=== PATIENT | male | born 1985 | race Caucasian/White ===

== ENCOUNTER 2016-09-12 19:40 | Emergency (ER) | payer SELFPAY ==
[~2016-09-12] VITALS: Ht 177.8 cm; Wt 72.6 kg
[~2016-09-12 19:40] MED LIST: AMOX500C2 PO; PRD20T PO
[2016-09-12] MEDS ORDERED: CEPH-506 PO (20:07)
[2016-09-12] MEDS ORDERED: PRD20T PO (20:07)
--- NOTE | 2016-09-12 20:07 | ED Integumentary General ---
General Chief Complaint: Skin/Wound Problems Stated Complaint: INFECTED POISON YVROSE ON BOTH LEGS Nursing Triage Note: c/o poison yvrose to extremities Source: patient, family Exam Limitations: no limitations History of Present Illness Time seen by provider: 20:01 Initial Comments Patient reports 3-4 days progressively worsening red rash on his right lower leg that is open is very itchy and was after he was out at [facility]. He' s never had poison yvrose this bad before. He is not having any problems breathing shortness of breath nausea or vomiting. Allergies and Home Medications Allergies Coded Allergies: No Known Drug Allergies (Unverified , 04/14/12) Home Medications Amoxicillin 500 Mg Capsule, 2 EACH PO TID for 10 Days Prescribed by: SUSAN CASTELLANO on 04/14/12 1343 Cephalexin 250 Mg Capsule, 250 MG PO TID for 7 Days, #21 Ref 0 Prescribed by: BARTOLO ISLAS on 09/12/16 2007 Prednisone 20 Mg Tab, 40 MG PO DAILY, #8 Prescribed by: ANTWAN ESPINOZA on 03/24/15 1533 Prednisone 20 Mg Tab, 60 MG PO DAILY for 7 Days, #21 Ref 0 Prescribed by: BARTOLO ISLAS on 09/12/162006 Constitutional: see HPI, No chills, No diaphoresis Gastrointestinal: No diarrhea, No nausea Genitourinary: No discharge, No dysuria Musculoskeletal: No joint pain, No joint swelling Skin: see HPI, pruritus, rash Past Ofbefnj-Yhfhvw-Zmfwhw Hx Patient Social History Alcohol Use: Occasionally Uses Recreational Drug Use: No Smoking Status: Current Everyday Smoker Type Used: Cigarettes Recent Foreign Travel: No Contact w/Someone Who Travel: No Recent Infectious Disease Expo: No Recent Hopitalizations: No Surgeries HX Surgeries: No Respiratory Hx Respiratory Disorders: No Cardiovascular Hx Cardiac Disorders: No Neurological Hx Neurological Disorders: No Genitourinary Hx Genitourinary Disorders: No Gastrointestinal Hx Gastrointestinal Disorders: No Musculoskeletal Hx Musculoskeletal Disorders: No Endocrine Hx Endocrine Disorders: No HEENT HX ENT Disorders: No Cancer Hx Cancer: No Psychosocial Hx Psychiatric Problems: No Integumentary HX Skin/Integumentary Disorder: No Family Medical History Significant Family History: Heart Disease Physical Exam Vital Signs Vital Sign - Last 12Hours 09/12/16 19:50 Temp 98.2 Pulse 100 Resp 18 B/P (MAP) 115/77 Pulse Ox 96 Capillary Refill : Less Than 3 Seconds General Appearance: WD/WN, no apparent distress Cardiovascular: regular rate, rhythm, no edema Respiratory: lungs clear, normal breath sounds Gastrointestinal: non tender, soft Extremities: normal capillary refill, calf tenderness, inflammation Neurologic/Psychiatric: alert, oriented x 3 Skin: rash (erythematous and pruritic with an open area on the jones 1-1/2 by one centimeters and mild weeping the erythema extends from 6 inches above the ankle always superior to just over the knee) Progress/Results/Core Measures Results/Orders Vital Signs/I&O Vital Sign - Last 12Hours 09/12/16 09/12/16 19:50 20:13 Temp 98.2 98.2 Pulse 100 100 Resp 18 18 B/P (MAP) 115/77 Pulse Ox 96 96 Blood Pressure Mean: 90 Departure Impression Impression: Primary Impression: Contact dermatitis due to poison yvrose Disposition: 01 HOME, SELF-CARE Condition: Stable Departure-Patient Inst. Decision time for Depature: 20:02 Referrals: [facility] (PCP/Family) Primary Care Physician Patient Instructions: Cellulitis (Skin Infection), Adult (DC) Add. Discharge Instructions: You will be put on prednisone take 60 mg(3 tablets) daily by mouth with some food. This will start working in 12-24 hours to help with the swelling and itching on her leg. He should also use something like Claritin or Zyrtec daily to help with the itching. You can put calamine ointment on the wound but not on any of the open areas. Just put a small amount of Vaseline over the open areas to keep them clean while you are at work. Bathe with a gentle soap and water just allowed to run over the wounds. You may also have cellulitis so we'll cover you for a week with some Keflex to be taken 3 times a day with food. This is an antibiotic and, side effects are loose stools. The steroid may make you flush in the face, hard to get to sleep, or feeling of being wired. If you cannot tolerate the symptoms you can reduce the dose by 1 pill a day. All discharge instructions reviewed with patient and/or family. Voiced understanding. Scripts Cephalexin (Keflex) 250 Mg Capsule 250 MG PO TID for 7 Days, #21 CAP 0 Refills Prov: BARTOLO ISLAS 09/12/16 Prednisone (Prednisone) 20 Mg Tab 60 MG PO DAILY for 7 Days, #21 TAB 0 Refills Prov: BARTOLO ISLAS 09/12/16 Copy Copies To 1: ETHAN COOK TITUS J Sep 12, 2016 20:06
[2016-09-12 20:13] VITALS: BP 115/77
== END 2016-09-12 20:13 | disposition home or self-care (01) ==
LOC: EDUNIT# 19:40 → ER 19:46
DX: L25.5 Unspecified contact dermatitis due to plants, except food (principal); F17.210 Nicotine dependence, cigarettes, uncomplicated
CPT/HCPCS: 99282